=== PATIENT | male | born 1990 | race Caucasian/White ===

== ENCOUNTER 2023-10-25 17:46 | Emergency (ER) | payer SELFPAY ==
[2023-10-25 17:58] VITALS: BP 125/90; PULSE 116; RESP 16; TEMP 37.3; O2SAT 100
--- NOTE | 2023-10-25 18:28 | ED.URI ---
HPI - URI/Sore Throat General Chief Complaint: Upper Respiratory Infection Stated Complaint: + STREP/FEVER/SORE THROAT Time Seen by Provider: 10/25/23 18:22 Source: patient, family () and RN notes reviewed Mode of arrival: ambulatory Limitations: no limitations History of Present Illness HPI Narrative: Patient presents today complaining of sore throat and fever. Patient was seen 2 days ago at a different Urgent Care and diagnosed with strep throat. He was placed on amoxicillin at that time and has since taken 5 doses. States symptoms have not improved, and fever has worsened. He has been taking Tylenol and ibuprofen occasionally with relief as well as using some home remedies. Currently rates his pain 4/10. Denies shortness of breath or difficulty swallowing. Related Data Allergies Allergy/AdvReac Type Severity Reaction Status Date / Time No Known Allergies Allergy Verified 10/25/23 18:32 Review of Systems Review of Systems: CONSTITUTIONAL: Denies body aches, chills, or sweats.+ fever EYES: Denies visual changes, redness, or discharge. ENT: Denies rhinorrhea, congestion,or otalgia.+ sore throat CARDIOVASCULAR: Denies chest pain, palpitations, or edema. RESPIRATORY: Denies cough or dyspnea. GASTROINTESTINAL: Denies abdominal pain, nausea, vomiting, or diarrhea. GENITOURINARY: Denies dysuria or hematuria. SKIN: Denies rash, itching, or wounds. MUSCULOSKELETAL: Denies back pain, joint pain, or myalgia. NEUROLOGIC: Denies headache, numbness, tingling, or weakness. PSYCH: Denies depression or anxiety. PMFSH Comments At time of signature, I have reviewed and agree with nursing past medical, surgical, social and family history unless otherwise noted. Please see nursing chart for further information. There is no relevant family history pertinent to the presenting complaint Exam Narrative: GENERAL: Mildly ill-appearing, well-nourished, and in no acute distress. HEAD: Normocephalic, atraumatic. EYES: EOMI. No redness or drainage. Conjunctivae normal. ENT: Mucous membranes pink and moist. Nares clear. No rhinorrhea. TMs normal bilaterally. Throat severely erythematous and moderately edematous. Tonsils 3+ with exudate. Uvula midline. NECK: Normal AROM. Supple. No lymphadenopathy. CHEST: No respiratory distress. Clear to auscultation. HEART: Regular rhythm. No murmur appreciated.+ tachycardia EXTREMITIES: Normal range of motion. No edema. SKIN: Warm, dry, no rash. Capillary refill normal. Normal skin turgor. NEURO: No focal deficits. Alert and oriented x3. Gait steady. PSYCH: Normal affect. No signs of depression or anxiety. Course Course Level of Care: Express Care Visit Vital Signs Vital signs: Vital Signs Temperature 99.2 F 10/25/23 17:58 Pulse Rate 116 H 10/25/23 17:58 Respiratory Rate 16 10/25/23 17:58 Blood Pressure 125/90 10/25/23 17:58 Pulse Oximetry 100 10/25/23 17:58 Temperature 99.2 F 10/25/23 17:58 Pulse Rate 116 H 10/25/23 17:58 Respiratory Rate 16 10/25/23 17:58 Blood Pressure 125/90 10/25/23 17:58 Pulse Oximetry 100 10/25/23 17:58 Reviewed MDM - URI/Sore Throat MDM Narrative Medical decision making narrative: Patient's antibiotic will be switched from amoxicillin to Augmentin due to worsening symptoms. Recommend continuing [id number] medication as well. Anticipatory guidance given. Differential Diagnosis Differential diagnosis: Likely pharyngitis and other (Strep throat, medication failure) Critical Care Time Critical Care Time Critical Care Time: No Discharge Plan Discharge Clinical Impression: Strep throat Patient Disposition: Home, Self-Care Condition: Stable Instructions: Antibiotic Form, Strep Throat (DC) Additional Instructions: Please stop the amoxicillin and start Augmentin. Take as directed. Continue [id number] medication as needed. Follow-up with your PCP next week if symptoms are not improving
== END 2023-10-25 18:45 | disposition home or self-care (01) ==
PROVIDERS: Emergency Provider Nurse Practitioner
DX: J02.0 Streptococcal pharyngitis (principal)
CPT/HCPCS: 99213; G0463

== ENCOUNTER 2024-01-04 16:38 | Emergency (ER) | payer OTHER, SELFPAY ==
[2024-01-04 16:44] VITALS: BP 131/93; PULSE 94; RESP 16; TEMP 36.5; O2SAT 96
--- NOTE | 2024-01-04 16:58 | ED.URI ---
HPI - URI/Sore Throat General Chief Complaint: Upper Respiratory Infection Stated Complaint: Cough Time Seen by Provider: 01/04/24 16:46 Source: patient and RN notes reviewed Mode of arrival: ambulatory Limitations: no limitations History of Present Illness HPI Narrative: Patient presents today complaining of a 1.5 week history of cough, nasal congestion with a one-week history of hoarse voice. Denies sore throat or shortness of breath. States he had a fever for the 1st 3 days of his illness, but none since then. He has not tried any [id number] medication for his symptoms prior to arrival. Denies history of asthma or COPD. He is not a smoker. Related Data Allergies Allergy/AdvReac Type Severity Reaction Status Date / Time No Known Allergies Allergy Verified 01/04/24 16:50 Review of Systems Review of Systems: CONSTITUTIONAL: Denies body aches, fever, chills, or sweats. EYES: Denies visual changes, redness, or discharge. ENT: Denies rhinorrhea, sore throat, or otalgia.+ nasal congestion, hoarse voice CARDIOVASCULAR: Denies chest pain, palpitations, or edema. RESPIRATORY: Denies dyspnea.+ cough GASTROINTESTINAL: Denies abdominal pain, nausea, vomiting, or diarrhea. GENITOURINARY: Denies dysuria or hematuria. SKIN: Denies rash, itching, or wounds. MUSCULOSKELETAL: Denies back pain, joint pain, or myalgia. NEUROLOGIC: Denies headache, numbness, tingling, or weakness. PSYCH: Denies depression or anxiety. PMFSH Comments At time of signature, I have reviewed and agree with nursing past medical, surgical, social and family history unless otherwise noted. Please see nursing chart for further information. There is no relevant family history pertinent to the presenting complaint Exam Narrative: GENERAL: Ill-appearing, well-nourished, and in no acute distress. HEAD: Normocephalic, atraumatic. EYES: EOMI. No redness or drainage. Conjunctivae normal. ENT: Mucous membranes pink and moist. Nares congested. No rhinorrhea. TMs normal bilaterally. Throat normal. Uvula midline. Hoarse voice noted NECK: Normal AROM. Supple. No lymphadenopathy. CHEST: No respiratory distress. End expiratory wheeze in the bilateral lower lobes, otherwise clear. HEART: Regular rate and rhythm. No murmur appreciated. EXTREMITIES: Normal range of motion. No edema. SKIN: Warm, dry, no rash. Capillary refill normal. Normal skin turgor. NEURO: No focal deficits. Alert and oriented x3. Gait steady. PSYCH: Normal affect. No signs of depression or anxiety. Course Course Level of Care: Express Care Visit Vital Signs Vital signs: Vital Signs Temperature 97.7 F 01/04/24 16:44 Pulse Rate 94 01/04/24 16:44 Respiratory Rate 16 01/04/24 16:44 Blood Pressure 131/93 H 01/04/24 16:44 Pulse Oximetry 96 01/04/24 16:44 Temperature 97.7 F 01/04/24 16:44 Pulse Rate 94 01/04/24 16:44 Respiratory Rate 16 01/04/24 16:44 Blood Pressure 131/93 H 01/04/24 16:44 Pulse Oximetry 96 01/04/24 16:44 Reviewed. MDM - URI/Sore Throat MDM Narrative Medical decision making narrative: Patient will be started on Augmentin and prednisone for sinusitis and bronchitis. Anticipatory guidance given Differential Diagnosis Differential diagnosis: Likely upper respiratory infection, sinusitis, viral infection, bronchitis and other (pneumonia) Critical Care Time Critical Care Time Critical Care Time: No Discharge Plan Discharge Clinical Impression: Bronchitis Sinusitis Qualifiers: Sinusitis location: unspecified location Chronicity: acute Recurrence: non-recurrent Qualified Code(s): J01.90 - Acute sinusitis, unspecified Patient Disposition: Home, Self-Care Condition: Stable Instructions: Sinusitis (ED), Acute Bronchitis (ED) Additional Instructions: Please take the Augmentin and prednisone as directed. For any chest congestion, take Mucinex during the day. For cough suppressant at night, you may try Ro
== END 2024-01-04 17:34 | disposition home or self-care (01) ==
PROVIDERS: Emergency Provider Nurse Practitioner
DX: J40 Bronchitis, not specified as acute or chronic (principal); J01.90 Acute sinusitis, unspecified
CPT/HCPCS: 99213; G0463

== ENCOUNTER 2024-07-18 15:28 | Emergency (ER) | payer OTHER, SELFPAY ==
[2024-07-18 15:37] VITALS: BP 140/93; PULSE 72; RESP 16; TEMP 36.1; O2SAT 100
--- NOTE | 2024-07-18 16:02 | ED.EAR ---
HPI - Ear Problem General Chief complaint: Ear Stated complaint: Ear Pain Time Seen by Provider: 07/18/24 15:56 Source: patient and RN notes reviewed Mode of arrival: ambulatory Limitations: no limitations History of Present Illness HPI Narrative: Patient presents today with a one-week history of muffling in the left ear that has since resolved with pain developing today that radiates to the jaw. Prior to onset of the ear pain patient had some URI symptoms that have resolved. Currently rates his pain 2/10 and has tried no [id number] treatment prior to arrival. Related Data Allergies Allergy/AdvReac Type Severity Reaction Status Date / Time No Known Allergies Allergy Verified 07/18/24 15:57 Review of Systems Review of Systems: CONSTITUTIONAL: Denies body aches, fever, chills, or sweats. EYES: Denies visual changes, redness, or discharge. ENT: Denies rhinorrhea, congestion, sore throat. + left ear pain CARDIOVASCULAR: Denies chest pain, palpitations, or edema. RESPIRATORY: Denies cough or dyspnea. GASTROINTESTINAL: Denies abdominal pain, nausea, vomiting, or diarrhea. GENITOURINARY: Denies dysuria or hematuria. SKIN: Denies rash, itching, or wounds. MUSCULOSKELETAL: Denies back pain, joint pain, or myalgia. NEUROLOGIC: Denies headache, numbness, tingling, or weakness. PSYCH: Denies depression or anxiety. PMFSH Comments At time of signature, I have reviewed and agree with nursing past medical, surgical, social and family history unless otherwise noted. Please see nursing chart for further information. There is no relevant family history pertinent to the presenting complaint Exam Narrative: GENERAL: Well-appearing, well-nourished, and in no acute distress. HEAD: Normocephalic, atraumatic. EYES: EOMI. No redness or drainage. Conjunctivae normal. ENT: Mucous membranes pink and moist. Nares clear. No rhinorrhea. Right TM normal. Left TM erythematous and dull. NECK: Normal AROM. CHEST: No respiratory distress. EXTREMITIES: Normal range of motion. No edema. SKIN: Warm, dry, no rash. Capillary refill normal. Normal skin turgor. NEURO: No focal deficits. Alert and oriented x3. Gait steady. PSYCH: Normal affect. No signs of depression or anxiety. Course Course Level of Care: Express Care Visit Vital Signs Vital signs: Vital Signs Temperature 97 F L 07/18/24 15:37 Pulse Rate 72 07/18/24 15:37 Respiratory Rate 16 07/18/24 15:37 Blood Pressure 140/93 H 07/18/24 15:37 Pulse Oximetry 100 07/18/24 15:37 Temperature 97 F L 07/18/24 15:37 Pulse Rate 72 07/18/24 15:37 Respiratory Rate 16 07/18/24 15:37 Blood Pressure 140/93 H 07/18/24 15:37 Pulse Oximetry 100 07/18/24 15:37 Reviewed Medical Decision Making MDM Narrative Medical decision making narrative: Patient will be started on cefdinir for left otitis media. Anticipatory guidance given. Differential Diagnosis Differential Diagnosis: Otitis media, otitis externa, ruptured TM, serous otitis, cerumen impaction Vital Signs Vital Signs: Vital Signs Temperature 97 F L 07/18/24 15:37 Pulse Rate 72 07/18/24 15:37 Respiratory Rate 16 07/18/24 15:37 Blood Pressure 140/93 H 07/18/24 15:37 Pulse Oximetry 100 07/18/24 15:37 Temperature 97 F L 07/18/24 15:37 Pulse Rate 72 07/18/24 15:37 Respiratory Rate 16 07/18/24 15:37 Blood Pressure 140/93 H 07/18/24 15:37 Pulse Oximetry 100 07/18/24 15:37 Critical Care Time Critical Care Time Critical Care Time: No Discharge Plan Discharge Clinical Impression: Acute left otitis media Patient Disposition: Home, Self-Care Condition: Stable Instructions: Antibiotic Form, Ear Infection (ED) Additional Instructions: Please take the cefdinir as prescribed. Take Tylenol or ibuprofen for pain. Follow-up with your PCP in 3 days if symptoms are not improving. Your blood pressure was elevated above 120/80 today at Urgent Care. This puts you above the threshold for follow up. Please schedule a followup visit with your personal physician as soon as possible, for further evaluation and treatment. Even blood pressure exceeding 120/80 may indicate pre-hypertension. Patient Language: Tuvaluan Prescriptions: New cefdinir 300 mg capsule 300 mg PO Q12H 7 Days Qty: 14 0RF No Action prednisone 50 mg tablet 50 mg PO DAILY 5 Days Qty: 5 0RF amoxicillin-pot clavulanate 875-125 mg tablet 1 tablet PO Q12H 7 Days Qty: 14 0RF Follow-up/Referrals: PHYSICIAN,[employer] [Primary Care Provider] - Time of Disposition: 16:06
== END 2024-07-18 16:09 | disposition home or self-care (01) ==
PROVIDERS: Emergency Provider Nurse Practitioner
DX: H66.92 Otitis media, unspecified, left ear (principal)
CPT/HCPCS: 99213; G0463

== ENCOUNTER 2024-07-22 10:27 | Emergency (ER) | payer OTHER, SELFPAY ==
[2024-07-22 10:42] VITALS: BP 137/88; PULSE 81; RESP 16; TEMP 36.3; O2SAT 100
--- NOTE | 2024-07-22 11:24 | ED.EAR ---
HPI - Ear Problem General Chief complaint: Ear Stated complaint: lt earache Time Seen by Provider: 07/22/24 11:06 Source: patient and RN notes reviewed Mode of arrival: ambulatory Limitations: no limitations History of Present Illness HPI Narrative: Patient presents today complaining of persistent left ear pain. Patient was initially seen here at [facility] on 07/18/2024, diagnosed with left otitis media and placed on cefdinir. He has been taking the medication as prescribed and states symptoms have only slightly improved. Reports that his is a [employer] and has an otoscope at home and that she looked in his ear this morning and it continues to be red. He took ibuprofen this morning with some mild relief. Related Data Allergies Allergy/AdvReac Type Severity Reaction Status Date / Time No Known Allergies Allergy Verified 07/22/24 10:41 Review of Systems Review of Systems: CONSTITUTIONAL: Denies body aches, fever, chills, or sweats. EYES: Denies visual changes, redness, or discharge. ENT: Denies rhinorrhea, congestion, sore throat. + left ear pain CARDIOVASCULAR: Denies chest pain, palpitations, or edema. RESPIRATORY: Denies cough or dyspnea. GASTROINTESTINAL: Denies abdominal pain, nausea, vomiting, or diarrhea. GENITOURINARY: Denies dysuria or hematuria. SKIN: Denies rash, itching, or wounds. MUSCULOSKELETAL: Denies back pain, joint pain, or myalgia. NEUROLOGIC: Denies headache, numbness, tingling, or weakness. PSYCH: Denies depression or anxiety. PMFSH Comments At time of signature, I have reviewed and agree with nursing past medical, surgical, social and family history unless otherwise noted. Please see nursing chart for further information. There is no relevant family history pertinent to the presenting complaint Exam Narrative: GENERAL: Well-appearing, well-nourished, and in no acute distress. HEAD: Normocephalic, atraumatic. EYES: EOMI. No redness or drainage. Conjunctivae normal. ENT: Mucous membranes pink and moist. Nares clear. No rhinorrhea. Right canal and TM normal. Left ear: Movement or tragal tenderness. Patient has a small amount of cerumen occluding the canal that was removed with a curette. TM is slightly injected and dull. Canal appears normal. NECK: Normal AROM. CHEST: No respiratory distress. EXTREMITIES: Normal range of motion. No edema. SKIN: Warm, dry, no rash. Capillary refill normal. Normal skin turgor. NEURO: No focal deficits. Alert and oriented x3. Gait steady. PSYCH: Normal affect. No signs of depression or anxiety. Course Course Level of Care: Express Care Visit Vital Signs Vital signs: Vital Signs Temperature 97.4 F L 07/22/24 10:42 Pulse Rate 81 07/22/24 10:42 Respiratory Rate 16 07/22/24 10:42 Blood Pressure 137/88 07/22/24 10:42 Pulse Oximetry 100 07/22/24 10:42 Temperature 97.4 F L 07/22/24 10:42 Pulse Rate 81 07/22/24 10:42 Respiratory Rate 16 07/22/24 10:42 Blood Pressure 137/88 07/22/24 10:42 Pulse Oximetry 100 07/22/24 10:42 Reviewed Medical Decision Making MDM Narrative Medical decision making narrative: Patient has been on the cefdinir for 4 days now and has not seen a significant improvement. TM continues to show signs of infection. New prescription for Augmentin has been sent to pharmacy and patient has been instructed to stop the cefdinir. Anticipatory guidance given. Differential Diagnosis Differential Diagnosis: Otitis media, otitis externa, ruptured TM, serous otitis, cerumen impaction Vital Signs Vital Signs: Vital Signs Temperature 97.4 F L 07/22/24 10:42 Pulse Rate 81 07/22/24 10:42 Respiratory Rate 16 07/22/24 10:42 Blood Pressure 137/88 07/22/24 10:42 Pulse Oximetry 100 07/22/24 10:42 Temperature 97.4 F L 07/22/24 10:42 Pulse Rate 81 07/22/24 10:42 Respiratory Rate 16 07/22/24 10:42 Blood Pressure 137/88 07/22/24 10:42 Pulse Oximetry 100 07/22/24 10:42 Critical Care Time Critical Care Time Critical Care Time: No Discharge Plan Discharge Clinical Impression: Acute left otitis media Patient Disposition: Home, Self-Care Condition: Stable Instructions: Antibiotic Form, Ear Infection (ED) Additional Instructions: Stop the cefdinir and start the Augmentin and take as prescribed. Follow up with your PCP next week if symptoms are not improving. Take tylenol or motrin for pain. Your blood pressure was elevated above 120/80 today at Urgent Care. This puts you above the threshold for follow up. Please schedule a followup visit with your personal physician as soon as possible, for further evaluation and treatment. Even blood pressure exceeding 120/80 may indicate pre-hypertension. Patient Language: American Prescriptions: New amoxicillin-pot clavulanate 875-125 mg tablet 1 tablet PO Q12H 10 Days Qty: 20 0RF No Action cefdinir 300 mg capsule 300 mg PO Q12H 7 Days Qty: 14 0RF Follow-up/Referrals: Herbert,Triston Benjamin [Other] Time of Disposition: 11:26
== END 2024-07-22 11:30 | disposition home or self-care (01) ==
PROVIDERS: Emergency Provider Nurse Practitioner
DX: H66.92 Otitis media, unspecified, left ear (principal)
CPT/HCPCS: 99213; G0463

== ENCOUNTER 2025-05-15 08:19 | Emergency (ER) | payer SELFPAY ==
[2025-05-15 08:31] VITALS: BP 145/102; PULSE 72; RESP 16; TEMP 36.1; O2SAT 100
--- NOTE | 2025-05-15 09:23 | ED_ITS ---
HPI - Eye Problem General Chief complaint: Eye Problems Stated complaint: R EYE REDNESS Time Seen by Provider: 05/15/25 09:08 Source: patient and RN notes reviewed Mode of arrival: ambulatory Limitations: no limitations History of Present Illness HPI Narrative: 34-year-old male patient presents today complaining of right upper eyelid redness and swelling times 3-4 days has been worsening since onset. Denies drai nage or vision changes. No OTC treatment prior to arrival. Related Data Allergies Allergy/AdvReac Type Severity Reaction Status Date / Time No Known Allergies Allergy Verified 05/15/25 08:23 [facility] Comments At time of signature, I have reviewed and agree with nursing past medical, surgical, social and family history unless otherwise noted. Please see nursing chart for further information. There is no relevant family history pertinent to the presenting complaint Exam Narrative: GENERAL: Well-appearing, well-nourished, and in no acute distress. HEAD: Normocephalic, atraumatic. EYES: EOMI. PERRL. Conjunctivae normal. Right eye: Fine crusting at the bases of the upper eyelashes. Mild to moderate erythema and edema of the entire upper eyelid. No pustule noted to the inner or outer aspect of the eyelid. No active drainage. ENT: Mucous membranes pink and moist. NECK: Normal AROM. CHEST: No respiratory distress. EXTREMITIES: Normal range of motion. No edema. SKIN: Warm, dry, no rash. Capillary refill normal. Normal skin turgor. NEURO: No focal deficits. Alert and oriented x3. Gait steady. PSYCH: Normal affect. No signs of depression or anxiety. Course Course Level of Care: Express Care Visit Vital Signs Vital signs: Vital Signs Temperature 97 F L 05/15/25 08:31 Pulse Rate 72 05/15/25 08:31 Respiratory Rate 16 05/15/25 08:31 Blood Pressure 145/102 H 05/15/25 08:31 Pulse Oximetry 100 05/15/25 08:31 Temperature 97 F L 05/15/25 08:31 Pulse Rate 72 05/15/25 08:31 Respiratory Rate 16 05/15/25 08:31 Blood Pressure 145/102 H 05/15/25 08:31 Pulse Oximetry 100 05/15/25 08:31 Reviewed MDM - Eye Problem MDM Narrative Medical decision making narrative: 34-year-old male patient presents today complaining of right upper eyelid redness and swelling times 3-4 days has been worsening since onset. Denies drainage or vision changes. No OTC treatment prior to arrival. Upon arrival,Fine crusting at the bases of the upper eyelashes. Mild to moderate erythema and edema of the entire upper eyelid. No pustule noted to the inner or outer aspect of the eyelid. No active drainage. Patient's symptoms are consistent with blepharitis with some mild cellulitis. Recommend conservative t reatment such as warm compresses, lid massage in washing. Will also place patient on some doxycycline for some developing mild cellulitis. Patient agrees with plan. Vital signs stable with elevated blood pressure. Anticipatory guidance given. Differential Diagnosis Differential diagnosis: Likely conjunctivitis and other (Blepharitis ,stye) Critical Care Time Critical Care Time Critical Care Time: No Discharge Plan Discharge Clinical Impression: Blepharitis Qualifiers: Blepharitis type: unspecified type Laterality: right Eyelid: upper Qualified Code(s): H01.001 - Unspecified blepharitis right upper eyelid Patient Disposition: Home Condition: Stable Instructions: Antibiotic Form, Blepharitis (ED) Additional Instructions: Your symptoms are likely due to inflammation around your eyelash shows. Apply warm compresses up to 4 times daily for 5-10 minutes each. Use a washcloth or clean fingertips to massage the eyelid in a circular motion after warm compress application. Wash the eyelid at the eyelash margin with baby shampoo with your finger tip or Q-tips 1-2 times daily. Do not touch the eye surface. This is best done after applying warm compresses. Take the doxycycline as prescribed. Follow-up with your eye doctor in 3-4 days if symptoms are not improving. Patient Language: [place] Leonean Prescriptions: New doxycycline hyclate 100 mg tablet 100 mg PO BID 7 Days Qty: 14 0RF Follow-up/Referrals: Herbert,Triston [Other] Time of Disposition: 09:31
== END 2025-05-15 09:34 | disposition home or self-care (01) ==
PROVIDERS: Emergency Provider Nurse Practitioner
DX: H01.001 Unspecified blepharitis right upper eyelid (principal)
CPT/HCPCS: 99213; G0463